=== PATIENT | female | born 1990 | race Caucasian/White ===

== ENCOUNTER → 2019-06-28 10:11 | Outpatient (CLI) | payer MEDICAID, SELFPAY ==
[2019-06-28 10:42] LABS: Basophils % 0.4 % (0.1-2.0); Eosinophils # 0.1 K/mm3 (0.0-0.4); Eosinophils % 1.4 % (0.1-12.0); Hematocrit 39.9 % (37.0-47.0); Hemoglobin 13.4 g/dL (12.2-16.2); Lymphocytes % 20.2 % (10-50); Mean Corpuscular HGB Conc 33.7 g/dL (31.8-35.4); Mean Corpuscular Hemoglobin 30.4 pg (27.0-31.2); Mean Corpuscular Volume 90.3 fl (81-99); Mean Platelet Volume 7.7 fl (7.4-10.4); Monocytes # 0.3 K/mm3 (0.1-1.0); Neutrophils # 7.6 K/mm3 (1.8-7.8); Neutrophils % 75.1 % (37.0-80.0); Platelet Count 297 K/mm3 (142-424); Red Blood Count 4.41 M/mm3 (4.20-5.40); White Blood Count 10.1 K/mm3 (4.8-10.8)
[2019-06-29 08:07] LABS: Hepatitis B Surface Antigen Negative (Negative); Hepatitis C Antibody <0.1 s/co ratio (0.0-0.9)
[2019-06-30 11:07] LABS: HIV Screen 4th Generation wRfx Non Reactive (Non Reactive); Rapid Plasma Reagin Ab Titer Non Reactive (NonRea<1:1); Rubella Antibodies, IgG 1.15 index (Immune >0.99)
== END ==
PROVIDERS: Visit Provider Nurse Practitioner Obstetrics & Gynecology
DX: Z34.90 Encounter for supervision of normal pregnancy, unspecified, unspecified trimester (principal)
CPT/HCPCS: 36415; 85025; 86592; 86703; 86762; 86850; 87340; 87380; G0432

== ENCOUNTER → 2019-08-31 13:05 | Outpatient (CLI) | payer MEDICAID, SELFPAY ==
--- NOTE | 2019-08-31 13:10 | US_ITS ---
PROCEDURE: US OB /MATERNAL DETAIL CLINICAL INDICATION: US OB Complete COMPARISON: No exams were available for comparison FINDINGS: There is a single live fetus present in breech presentation. Cervix is closed measuring 4.5 cm. Measurements: Average ultrasound age 18weeks 5days. Gestational Age 19 weeks 2 days Estimated due date by ultrasound age 0601/27/2020. Estimated weight 235g BPD = 19weeks 2days OFD = 19 weeks 3 days HC = 18weeks 5days AC = 19weeks 6days FL = 16weeks 5days Growth Percentile= 8% Heart Rate = 142bpm Cerebellum = Humerus = 18weeks 3days HC/AC is 1.09 CI is 0.79 FL/BPD is 0.51 FL/AC is 0.15 There is a prominent 6 by lobular cystic area along posterior aspect of the fetus neck measuring 10 x 7 cm and may represent a large cystic hygroma. There is a small right pleural effusion. The heart is very difficult to evaluate and is not adequately assessed. heart tones at 142 beats per minute with some a rhythm in noted the placenta is anterior.. There is average amount of amniotic fluid. There is some subcutaneous edema noted along the posterior hemithorax. Femur length is foreshortened within FL/AC of 15 percent IMPRESSION: There is a single live fetus in breech presentation with an average ultrasound age of 18 weeks and 5 days. There is a large multi lobular septated cystic area which appears to be associated along the posterior aspect of the neck suggesting a cystic hygroma. There is a small right pleural effusion. The heart is not adequately evaluated. There is also some subcutaneous edema along the posterior hemithorax. 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 Dictated by: Carson Webb MD 09/23/2019 08:17 Electronically signed by Carson Webb MD in [place] 09/23/2019 08:17
== END ==
PROVIDERS: PCP Nurse Practitioner Family; Visit Provider Nurse Practitioner Obstetrics & Gynecology
DX: Z36.0 Encounter for antenatal screening for chromosomal anomalies (principal)
CPT/HCPCS: 76811

== ENCOUNTER 2019-11-09 15:57 | Outpatient (CLI) | payer MEDICAID, SELFPAY ==
[2019-11-09 16:10] VITALS: BP 117/84; PULSE 97; RESP 18; TEMP 36.8; O2SAT 97; BMI 38.4
== END 2019-11-09 16:25 | disposition home or self-care (01) ==
LOC: OBOUT 15:58 → OB 15:59
PROVIDERS: PCP Nurse Practitioner Family; Visit Provider Nurse Practitioner Obstetrics & Gynecology
DX: Q96.0 Karyotype 45, X (principal); Z3A.29 29 weeks gestation of pregnancy
CPT/HCPCS: 96372

== ENCOUNTER 2019-11-10 16:30 | Outpatient (CLI) | payer MEDICAID, SELFPAY ==
[2019-11-10 16:35] VITALS: BP 117/66; PULSE 97; RESP 18; TEMP 36.9; O2SAT 95; BMI 34.9
--- NOTE | 2019-11-10 16:35 | PC.NURSE ---
Pt. arrives for 2nd celestone injection- patient screened prior to arriving for s/s of coronoavirus. patient answered no. POC discussed and pt v/u
[2019-11-10 16:40] VITALS: BP 117/66; PULSE 97; RESP 18; TEMP 36.9; O2SAT 95
== END 2019-11-10 17:00 | disposition home or self-care (01) ==
LOC: OBOUT 16:34 → OB 16:37
PROVIDERS: PCP Nurse Practitioner Family; Referring Provider Nurse Practitioner Obstetrics & Gynecology; Visit Provider Nurse Practitioner Obstetrics & Gynecology
DX: Q96.0 Karyotype 45, X (principal)
CPT/HCPCS: 96372

== ENCOUNTER 2020-11-04 20:26 | Emergency (ER) | payer MEDICAID, SELFPAY ==
[2020-11-04 20:45] VITALS: BP 116/79; PULSE 81; RESP 14; TEMP 37.2; O2SAT 97; BMI 25.7
--- NOTE | 2020-11-04 20:56 | HMH.EDUTC ---
[facility] Disposition Clinical Impression: Strep throat Disposition: Home, Self-Care Condition on Discharge: Good Instructions: Strep Throat, DI for Strep Throat Additional Instructions: Drink plenty of fluids. Take tylenol or ibuprofen for pain or fever. Take the medications as directed. Follow up with your regular doctor. GO TO THE ER FOR ANY WORSENING SYMPTOMS Throw your tooth brush away and get a new one. Prescriptions: Amoxicillin/Potassium Clav [Augmentin 875-125 Tablet] 1 tab PO Q12H 10 Days #20 tab Transmission Status: Received by [facility]pharm[facility] #[id number] predniSONE [Deltasone 10mg tablet] 10 mg PO BID 3 Days #6 tab Transmission Status: Received by [facility]/pharm[facility] #[id number] Referrals: Rukhsana Patel [Primary Care Provider] - Forms: Work/School Release Time of Disposition: 21:06 Medical Decision Making - Medical Records Medical records reviewed: No: I reviewed the patient's medical records. - Horace Inquiry Pt receiving controlled substance: No Vital Signs: 11/04/20 20:45 11/04/20 21:02 Temperature 98.9 F 99 F Temperature Source Oral Pulse Rate 88 Pulse Rate [Right] 81 Respiratory Rate 14 12 Blood Pressure 113/74 Blood Pressure [Right Arm] 116/79 Blood Pressure Mean [Right Arm] 91 Blood Pressure Source [Right Arm] Automatic Cuff Blood Pressure Position [Right Arm] Sitting 02 Sat by Pulse Oximetry 97 Oxygen Delivery Method Room Air - Lab Data Lab results reviewed: Yes: I reviewed the patient's lab results. Lab Results 11/04/20 20:51: Strep Scn Rapid Clinic Positive A [facility] HPI - General Stated complaint: sore throat Time Seen by Provider: 11/04/20 20:56 Mode of Arrival: Ambulatory Source of Information: Patient Limitations: No Limitations Description of Symptoms (Recalled from Triage Doc. by RN): SORE THROAT, SWOLLEN LYMPH NOES, SWOLLEN TONSILS, AND TROUBLE SWALLOWING. PT FINISHED HER COVID QUARENTINE ON OCT 19 AFTER POSITIVE RESULTS. HEENT Symptoms (Recalled from RN notes): Yes (SORE THROAT, SWOLLEN LYMPH NODES AND TROUBLE SWALLOWING) Resp Symptoms (Recalled from RN notes): No Skin Symptoms (Recalled from RN notes): No MS Symptoms (Recalled from RN notes): No Functional Status (Recalled from RN notes): NA - History of Present Illness Provider Complaint: She c/o sore throat and chilling for the past 1 day. She denies any cough and congestion. She had covid-19 about 3 weeks ago and she states got completely better from that. - Related Data Home Medications Medication Instructions Recorded Confirmed vitamin tab PO 08/31/19 12/15/19 no.76-iron,carbonyl 29 mg iron-folic acid 1 mg tablet albuterol sulfate 90 mcg/actuation INHALATION 11/08/19 12/15/19 aerosol inhaler promethazine 25 mg tablet 25 mg PO tab 12/15/19 12/15/19 Previous Rx's Medication Instructions Recorded famotidine 20 mg tablet 20 mg PO DAILY #30 tab 07/11/19 ferrous sulfate 325 mg (65 mg 325 mg PO DAILY #30 tab 08/31/19 iron) tablet betamethasone acetate and sodium 6 mg IM DAILY #5 ml 11/08/19 phos 6 mg/mL suspension for injection clonazepam 0.5 mg tablet 0.5 mg PO BID PRN #30 tab 10/12/20 sertraline 50 mg tablet 50 mg PO DAILY #30 tab 10/15/20 Amoxicillin/Potassium Clav 1 tab PO Q12H 10 Days #20 tab 11/04/20 [Augmentin 875-125 Tablet] predniSONE [Deltasone 10mg tablet] 10 mg PO BID 3 Days #6 tab 11/04/20 Allergies Allergy/AdvReac Type Severity Reaction Status Date / Time No Known Allergies Allergy Verified 11/04/20 20:50 - Worker's Comp Is this a Worker's Comp case?: No [facility] History - Hepatitis A Screen Drug use history?: No High risk sexual behaviors?: No History of sexually transmitted infection?: No Currently employed?: No Childcare worker?: No Do you have indoor plumbing?: Yes Do you have electricity?: Yes Attestation statement:: This patient has been screened for Hepatitis A risk factors. I have reviewed the patient's past medica
[2020-11-04 21:02] VITALS: BP 113/74; PULSE 88; RESP 12; TEMP 37.2
[2020-11-04 21:12] LABS: UTC Strep Screen (Rapid) Positive (Negative)
== END 2020-11-04 21:12 | disposition home or self-care (01) ==
PROVIDERS: Emergency Provider Nurse Practitioner Family; PCP Nurse Practitioner Family
DX: J02.0 Streptococcal pharyngitis (principal); Z86.16 Personal history of COVID-19; F41.8 Other specified anxiety disorders; F17.210 Nicotine dependence, cigarettes, uncomplicated
CPT/HCPCS: 87880; 99202; G0463

== ENCOUNTER → 2020-12-30 18:38 | Outpatient (REF) | payer SELFPAY | LOC: ER 18:38 | DX: F10.929 Alcohol use, unspecified with intoxication, unspecified (principal) | CPT/HCPCS: 36415 ==

== ENCOUNTER 2022-08-21 11:55 | Emergency (ER) | payer MEDICAID, SELFPAY ==
[2022-08-21 12:15] VITALS: BP 123/67; PULSE 78; RESP 19; TEMP 36.8; O2SAT 98; BMI 33.5
[2022-08-21 12:41] LABS: UTC Strep Screen (Rapid) Negative (Negative)
--- NOTE | 2022-08-21 12:41 | EXP.UTC ---
Discharge Plan Disposition Patient Disposition: Home, Self-Care Condition: Good Prescriptions Prescriptions: No Action ferrous sulfate [FeroSul] 325 mg (65 mg iron) tablet 325 mg PO DAILY Qty: 30 11RF albuterol sulfate 90 mcg/actuation HFA aerosol inhaler INHALATION betamethasone acet,sod phos [Celestone Soluspan] 6 mg/mL suspension 6 mg IM DAILY Qty: 5 1RF Rx Instructions: 12 MG IM today and 12 MG IM on 11/09/2019 promethazine 25 mg tablet 25 mg PO Label Comments: TAKE 1 TABLET BY MOUTH EVERY 6 HOURS, AND 1/2 TABLET NEEDED FOR NAUSEA AND VOMITING. famotidine [Pepcid] 20 mg tablet 20 mg PO DAILY Qty: 30 4RF clonazepam [Klonopin] 0.5 mg tablet 0.5 mg PO BID PRN (Reason: anxiety) Qty: 30 0RF sertraline [Zoloft] 100 mg tablet 100 mg PO DAILY Qty: 30 1RF prednisone 10 MG tablet 10 mg PO BID 3 Days Qty: 6 0RF Referrals Follow up/Referrals: Jamia Olmos APRN [Primary Care Provider] - See instructions Activity Restrictions/Add. Instructions Additional Instructions/Restrictions: *Monitor Temp, Over the counter Motrin or Tylenol as directed/as needed Tylenol every 4 hours and Motrin every 6 hours (as long as your family doctor has told you that you can take it) for fever or pain. and straight to ER if unable to lower temp less than 101.0 after medication given *Warm salt water gargles may help to soothe the throat *Throat Lozenges? *Warm fluids like tea with honey may help to soothe the throat? *Sleep elevated *Humidifier/Vaporizer Your throat swab was sent for culture. Those results are typically sent to your primary care. Be sure to follow up in 2-3 days with your family doctor/primary care physician if no improvement so they can review those result and treat if necessary. If you don?t have a primary care doctor, I recommend you get one but in the mean time, you will have to return to a walk in clinic Follow up IMMEDIATELY for new or worsening symptoms or no Noticeable improvement over the next 48-72 hours. 911 for difficulty breathing or swallowing Clinical Impressions Clinical Impression: Viral upper respiratory infection Instructions Patient Instructions: DI for Viral Upper Respiratory Infection -- Adult Discharge ED Provider: Kerry Mena [facility] [place] HPI General Stated complaint: Headache, sore throat, congestion, nausea, diarrhe Mode of Arrival: Ambulatory Source of Information: Patient Limitations: No Limitations Time Seen by Provider: 08/21/22 12:41 Description of Symptoms (Recalled from Triage Doc. by RN): PATIENT C/O HEADACHE, SORE THROAT, CONGESTION, FATIGUE AND SNEEZING SINCE YESTERDAY HEENT Symptoms (Recalled from RN notes): Yes Resp Symptoms (Recalled from RN notes): No Skin Symptoms (Recalled from RN notes): No MS Symptoms (Recalled from RN notes): No Functional Status (Recalled from RN notes): WNL History of Present Illness Provider Complaint: Patient states that she started feeling bad yesterday States that she has been having sneezing, sore throat headache and fatigue since yesterday States today she was still not feeling well so she came in to get checked for flu and strep Related Data Home Medications Medication Instructions Recorded Confirmed albuterol sulfate 90 mcg/actuation inhalation 11/08/19 12/15/19 aerosol inhaler promethazine 25 mg tablet 25 mg PO 12/15/19 12/15/19 Previous Rx's Medication Instructions Recorded famotidine 20 mg tablet (Pepcid) 20 mg PO DAILY #30 tabs 07/11/19 ferrous sulfate 325 mg (65 mg 325 mg PO DAILY #30 tabs 08/31/19 iron) tablet (FeroSul) betamethasone acetate and sodium 6 mg IM DAILY #5 mL 11/08/19 phos 6 mg/mL suspension for injection (Celestone Soluspan) prednisone 10 mg tablet 10 mg PO BID 3 days #6 tabs 11/04/20 clonazepam 0.5 mg tablet (Klonopin) 0.5 mg PO BID PRN anxiety #30 tabs 04/15/21 sertraline 100 mg tablet (Zoloft) 100 mg PO DAILY #30 tabs
[2022-08-21 12:42] LABS: UTC Influenza A Antigen Negative (Negative); UTC Influenza B Antigen Negative (Negative)
[2022-08-21 12:59] VITALS: BP 123/67; PULSE 78; RESP 19; TEMP 36.8; O2SAT 98
[2022-08-21 14:19] LABS: Adenovirus,PCR Not Detected (NotDetected); Bordetella Pertussis Not Detected (NotDetected); Chlamydophila Pneumoniae, PCR Not Detected (NotDetected); Coronavirus 19, PCR Not Detected (NotDetected); Coronavirus 229E Not Detected (NotDetected); Coronavirus NL63 Not Detected (NotDetected); Coronavirus OC43 Not Detected (NotDetected); Human Metapneumovirus Not Detected (NotDetected); Influenza A, PCR Not Detected (NotDetected); Influenza AH1, 2009 Not Detected (NotDetected); Influenza AH1, PCR Not Detected (NotDetected); Influenza AH3,PCR Not Detected (NotDetected); Influenza B, PCR Not Detected (NotDetected); Mycoplasma Pneumoniae, PCR Not Detected (NotDetected); Parainfluenza 1, PCR Not Detected (NotDetected); Parainfluenza 2, PCR Not Detected (NotDetected); Parainfluenza 3, PCR Not Detected (NotDetected); Parainfluenza 4, PCR Not Detected (NotDetected); Respiratory Syncytial Virus Not Detected (NotDetected)
[2022-08-21 19:20] LABS: Coronovirus HKU1,PCR Detected (NotDetected); Rhinovirus/Enterovirus Detected (NotDetected)
== END 2022-08-21 13:04 | disposition home or self-care (01) ==
PROVIDERS: Emergency Provider Nurse Practitioner; PCP Nurse Practitioner
DX: J06.9 Acute upper respiratory infection, unspecified (principal)
CPT/HCPCS: 87581; 87632; 87798; 87804; 87880; 99212; C9803; G0463; U0003; U0005

== ENCOUNTER 2023-03-15 12:17 | Emergency (ER) | payer MEDICAID, SELFPAY ==
[2023-03-15 12:25] VITALS: BP 130/86; PULSE 77; RESP 18; TEMP 36.9; O2SAT 98; BMI 33.8
--- NOTE | 2023-03-15 12:43 | EXP.UTC ---
Discharge Plan Disposition Patient Disposition: Home, Self-Care Condition: Good Prescriptions Prescriptions: No Action ferrous sulfate [FeroSul] 325 mg (65 mg iron) tablet 325 mg PO DAILY Qty: 30 11RF albuterol sulfate 90 mcg/actuation HFA aerosol inhaler INHALATION betamethasone acet,sod phos [Celestone Soluspan] 6 mg/mL suspension 6 mg IM DAILY Qty: 5 1RF Rx Instructions: 12 MG IM today and 12 MG IM on 11/09/2019 promethazine 25 mg tablet 25 mg PO Patient Comments: TAKE 1 TABLET BY MOUTH EVERY 6 HOURS, AND 1/2 TABLET NEEDED FOR NAUSEA AND VOMITING. citalopram [Celexa] 40 mg tablet 40 mg PO DAILY Qty: 30 1RF citalopram [Celexa] 20 mg tablet 20 mg PO HS Qty: 30 1RF famotidine [Pepcid] 20 mg tablet 20 mg PO DAILY Qty: 30 4RF clonazepam [Klonopin] 0.5 mg tablet 0.5 mg PO BID PRN (Reason: anxiety) Qty: 60 0RF prednisone 10 MG tablet 10 mg PO BID 3 Days Qty: 6 0RF Referrals Follow up/Referrals: Jamia Olmos APRN [Primary Care Provider] - See instructions Activity Restrictions/Add. Instructions Additional Instructions/Restrictions: Make sure to continue to drink plenty of fluids to keep your hydrated Slowly advance diet Follow up with your Family Doctor if needed Straight to ER if any life threatening symptoms Clinical Impressions Clinical Impression: Viral syndrome Stand Alone Forms Stand Alone Forms: Work/School Release Instructions Patient Instructions: Nausea and Vomiting-Adult, Diarrhea Discharge ED Provider: Kerry Mena [facility] General Stated complaint: Vomiting diarrhea Mode of Arrival: Ambulatory Source of Information: Patient Limitations: No Limitations Time Seen by Provider: 03/15/23 12:44 Description of Symptoms (Recalled from Triage Doc. by RN): PATIENT STATES SHE HAD VOMITING AND DIARRHEA THURSDAY AND THURSDAY BUT FEELS BETTER TODAY. REQUESTING A WORK NOTE HEENT Symptoms (Recalled from RN notes): No Resp Symptoms (Recalled from RN notes): No Skin Symptoms (Recalled from RN notes): No MS Symptoms (Recalled from RN notes): No Functional Status (Recalled from RN notes): WNL History of Present Illness Provider Complaint: Patient states that she had N/V/D on Thursday and Thursday but got better last night States that she is feeling much better today and not had any symptoms but work wanted her to get checked out before she came States that she has been able to eat and drink today without problems Related Data Home Medications Medication Instructions Recorded Confirmed albuterol sulfate 90 mcg/actuation inhalation 11/08/19 01/01/23 aerosol inhaler promethazine 25 mg tablet 25 mg PO 12/15/19 01/01/23 Previous Rx's Medication Instructions Recorded famotidine 20 mg tablet (Pepcid) 20 mg PO DAILY #30 tabs 07/11/19 ferrous sulfate 325 mg (65 mg 325 mg PO DAILY #30 tabs 08/31/19 iron) tablet (FeroSul) betamethasone acetate and sodium 6 mg IM DAILY #5 mL 11/08/19 phos 6 mg/mL suspension for injection (Celestone Soluspan) prednisone 10 mg tablet 10 mg PO BID 3 days #6 tabs 11/04/20 citalopram 20 mg tablet (Celexa) 20 mg PO HS #30 tabs 01/01/23 citalopram 40 mg tablet (Celexa) 40 mg PO DAILY #30 tabs 02/18/23 clonazepam 0.5 mg tablet (Klonopin) 0.5 mg PO BID PRN anxiety #60 tabs 03/09/23 Allergies Allergy/AdvReac Type Severity Reaction Status Date / Time No Known Allergies Allergy Verified 01/01/23 09:50 Worker's Comp Is this a Worker's Comp case?: No [facility] Disclaimer: The information contained in this section may have been updated after the patient was seen, as this information can be updated by other users. Medical History (Updated 03/15/23 @ 12:49 by Kerry Mena APRN) Anxiety Depression Generalized anxiety disorder History of gastroesophageal reflux (GERD) Surgical History (Updated 08/21/22 @ 12:30 by Angelika Burch RN) History of section History of tubal ligatio
[2023-03-15 12:52] VITALS: BP 130/86; PULSE 77; RESP 18; TEMP 36.9; O2SAT 98
== END 2023-03-15 12:53 | disposition home or self-care (01) ==
PROVIDERS: Emergency Provider Nurse Practitioner; PCP Nurse Practitioner
DX: B34.9 Viral infection, unspecified (principal); R11.2 Nausea with vomiting, unspecified; F17.210 Nicotine dependence, cigarettes, uncomplicated; F41.1 Generalized anxiety disorder; F32.A Depression, unspecified
CPT/HCPCS: 99212; G0463